=== PATIENT | female | born 1965 | race Caucasian/White ===

== ENCOUNTER 2016-08-20 08:38 | Emergency (ER) | payer OTHER ==
[2016-08-20 08:56] VITALS: BP 123/59
--- NOTE | 2016-08-20 09:08 | UC ---
Complaint Female HPI - HPI Summary HPI Summary: complaint of more frequently and urgency that started last night slight discomfort today with urination noticed urine a very dark color this morning recently started a new pakistani herbal medication for urinary incontinence blood sugar was high yesterday- 400's type 1 DM- wears a pump- today 150's cortisol injections in her right hand- Dr Chaparro denies fever, abdmoinal pain , flank pain - History Of Current Complaint Chief Complaint: UCGU Stated Complaint: BLOOD IN URINE Time Seen by Provider: 08/20/16 09:01 Hx Obtained From: Patient - Allergies/Home Medications Allergies/Adverse Reactions: Allergies Allergy/AdvReac Type Severity Reaction Status Date / Time Erythromycin [From Ilosone] Allergy Stomach Verified 08/20/16 08:45 Cramps Penicillins Allergy Unknown Verified 07/08/14 16:11 Reaction Details Sulfa Antibiotics Allergy Unknown Verified 07/08/14 16:11 Reaction Details Home Medications: Home Medications Insulin Aspart [Novolog] 08/20/16 [History] PMH/Surg Hx/FS Hx/Imm Hx Previously Healthy: No - tendonitis in both hands Endocrine History Of: Reports: Diabetes Cancer History Of: Denies: Breast Cancer - Surgical History Surgical History: Yes Surgery Procedure, Year, and Place: Appendectomy 2003 - Family History Known Family History: Positive: Diabetes - mother Negative: Cardiac Disease, Hypertension - Social History Occupation: Employed Full-time Lives: With Family Alcohol Use: Rare Substance Use Type: None Substance Use Comment - Amount & Last Used: pakistani herbs Smoking Status (MU): Never Smoked Tobacco - Immunization History Most Recent Influenza Vaccination: doesn't usually get Review of Systems Constitutional: Negative Skin: Negative Eyes: Negative ENT: Negative Respiratory: Negative Cardiovascular: Negative Gastrointestinal: Negative Genitourinary: Dysuria, Hematuria, Frequency, Urgency Motor: Negative Neurovascular: Negative Musculoskeletal: Negative Neurological: Negative Psychological: Negative All Other Systems Reviewed And Are Negative: Yes Physical Exam Triage Information Reviewed: Yes Appearance: No Pain Distress, Well-Nourished Vital Signs: Initial Vital Signs Temp 97.5 F 08/20/16 08:48 Pulse 75 08/20/16 08:48 Resp 17 08/20/16 08:48 BP 123/59 08/20/16 08:48 Pulse Ox 100 08/20/16 08:48 Vital Signs Reviewed: Yes Eyes: Positive: Conjunctiva Clear ENT: Positive: Pharynx normal, TMs normal. Negative: Nasal congestion Neck: Positive: No Lymphadenopathy Respiratory: Positive: Lungs clear, Normal breath sounds, No respiratory distress Cardiovascular: Positive: RRR, No Murmur, Pulses Normal Abdomen Description: Positive: Nontender, No Organomegaly, Soft. Negative: CVA Tenderness (R), CVA Tenderness (L), Distended, Guarding Bowel Sounds: Positive: Present Musculoskeletal: Positive: No Edema Neurological: Positive: Alert Psychological: Positive: Normal Response To Family Skin Exam: Normal Complaint Female Dx - Course Course Of Treatment: exam completed. afebrile, denies any muscle aches, flank pain, abdominal. will treat for hemmorrhagis cystitis with PCP followup in 1-2 days. pt cannot take fluruquinolones d/t tendonitis - Differential Dx/Diagnosis Differential Diagnosis/HQI/PQRI: Ureteral Stone, Urinary Tract Infection Provider Diagnoses: hemorrhagic cystitis - Physician Notifications Discussed Patient Care With: Dr Salcido Time Discussed With Above Provider: 09:35 Discharge - Discharge Plan Condition: Stable Disposition: HOME Prescriptions: Nitrofurantoin Monohyd Macro [Macrobid] 100 mg PO BID #10 cap Patient Education Materials: Urinary Tract Infection in Women (ED), Nitrofurantoin Combination (By mouth) Referrals: Carole Mcneill MD [Primary Care Provider] - Additional Instructions: Start antibiotic as directed Stop taking herbal supplements until you are seen by Dr Mcneill. Increase fluids and rest Please make a followup appt with Dr Mcneill in 2 days to have your condition rechecked Take acetaminophen for fever or pain Please review your discharge instructions. If your symptoms do not improve please call your primary care provider or return to urgent care
== END 2016-08-20 09:45 | disposition home or self-care (01) ==
LOC: UCEAST 08:38
DX: N30.80 Other cystitis without hematuria (principal); E11.9 Type 2 diabetes mellitus without complications
CPT/HCPCS: 81002; 87077; 87086; 87186; 99212; G0463

== ENCOUNTER 2016-11-18 09:04 | Emergency (ER) | payer OTHER ==
[2016-11-18 09:40] VITALS: BP 128/67
--- NOTE | 2016-11-18 11:13 | UC ---
Throat Pain/Nasal Huy HPI - HPI Summary HPI Summary: PATIENT PRESENTS TO WITH CC OF THROAT PAIN SINCE YESTERDAY. SHE STATES SHE WAS HERE LAST NIGHT WITH HER SON WHO WAS DX WITH STREP THROAT. SHE FELT A SCRATCH IN HER THROAT LAST EVENING AND WANTED TO GET A RAPID STREP TEST. SHE WAS UNABLE TO CHECK IN AND GET THIS TEST D/T CLOSING TIME (IT WAS AFTER 11PM PER LEARNING AND DEVELOPMENT DIRECTOR). SHE COMES BACK TODAY TO MAKE SURE SHE DOES NOT HAVE STREP. SHE DOES NOT WISH TO BE TREATED WITH ABX UNLESS CONFIRMED STREP +. SHE IS OTHERWISE HEALTHY AND TAKES MEDICATIONS FOR TYPE 1 DIABETES. SHE HAS BEEN TAKING TYLENOL FOR RELIEF. SHE NOTES TO A MILD COUGH AND SOME SINUS DISCOMFORT WITH SOME DRAINAGE, BUT OTHERWISE DENIES RECENT ILLNESS. AFEBRILE ON ARRIVAL. - History of Current Complaint Chief Complaint: UCGeneralIllness Stated Complaint: THROAT PAIN Time Seen by Provider: 11/18/16 09:30 Hx Obtained From: Patient ?: No Onset/Duration: Sudden Onset Severity: Mild Pain Intensity: 2 Pain Scale Used: 0-10 Numeric Associated Signs & Symptoms: Positive: Dysphagia, Nasal Discharge - Epiglottits Risk Factors Epiglottis Risk Factors: Negative - Allergies/Home Medications Allergies/Adverse Reactions: Allergies Allergy/AdvReac Type Severity Reaction Status Date / Time Ciprofloxacin Allergy See Comment Verified 11/18/16 09:32 Erythromycin [From Ilosone] Allergy Stomach Verified 08/20/16 08:45 Cramps Penicillins Allergy Swelling Verified 11/18/16 09:32 Sulfa Antibiotics Allergy Swelling Verified 11/18/16 09:32 PMH/Surg Hx/FS Hx/Imm Hx Previously Healthy: Yes - TYPE 1 DIABETES Endocrine History Of: Reports: Diabetes Cancer History Of: Denies: Breast Cancer - Surgical History Surgical History: Yes Surgery Procedure, Year, and Place: Appendectomy 2003 - Family History Known Family History: Positive: Diabetes - mother Negative: Cardiac Disease, Hypertension - Social History Occupation: Employed Full-time Lives: With Family Alcohol Use: Rare Substance Use Type: None Substance Use Comment - Amount & Last Used: burmese herbs Smoking Status (MU): Never Smoked Tobacco - Immunization History Most Recent Influenza Vaccination: doesn't usually get Review of Systems Constitutional: Negative, Fever ENT: Sore Throat, Nasal Discharge Respiratory: Negative Cardiovascular: Negative Gastrointestinal: Negative Motor: Negative Neurovascular: Negative Neurological: Negative Psychological: Negative All Other Systems Reviewed And Are Negative: Yes Physical Exam Triage Information Reviewed: Yes Appearance: Well-Appearing, No Pain Distress, Well-Nourished Vital Signs: Initial Vital Signs Temp 97.9 F 11/18/16 09:33 Pulse 72 11/18/16 09:33 Resp 16 11/18/16 09:33 BP 128/67 11/18/16 09:33 Pulse Ox 99 11/18/16 09:33 Vital Signs Reviewed: Yes Eye Exam: Normal Eyes: Positive: Conjunctiva Clear ENT: Positive: Pharyngeal erythema, Nasal drainage Dental Exam: Normal Neck exam: Normal Neck: Positive: Supple, No Lymphadenopathy Respiratory Exam: Normal Respiratory: Positive: Chest non-tender, Lungs clear, Normal breath sounds, No respiratory distress Cardiovascular Exam: Normal Cardiovascular: Positive: RRR Musculoskeletal Exam: Normal Musculoskeletal: Positive: Strength Intact Neurological Exam: Normal Neurological: Positive: Alert Psychological: Positive: Normal Response To Family, Age Appropriate Behavior, Decreased Age Appropriate Behavior Throat Pain/Nasal Course/Dx - Course Course Of Treatment: STREP NEGATIVE. WILL SEND FOR CULTURE. PATIENT ENCOURAGED TO TAKE TYLENOL FOR RELIEF. PATIENT IS OK WITH PLAN AND WILL FOLLOW UP NEEDED. - Differential Dx/Diagnosis Differential Diagnosis/HQI/PQRI: Pharyngitis, Tonsillitis, URI, Other - STREP THROAT Provider Diagnoses: PHARYNGITIS Discharge - Discharge Plan Condition: Stable Disposition: HOME Patient Education Materials: Pharyngitis (ED) Referrals: Carole Mcneill MD [Primary Care Provider] - Additional Instructions: How can I manage my symptoms? Use lozenges, ice, soft foods, or popsicles to soothe your throat. Drink juice, milk shakes, or soup if your throat is too sore to eat solid food. Drinking liquids can also help prevent dehydration. Gargle with salt water. Mix teaspoon salt in a 1 cup of warm water and gargle. This may help reduce swelling in your throat. Do not smoke. Nicotine and other chemicals in cigarettes and cigars can cause lung damage and make your symptoms worse. Ask your healthcare provider for information if you currently smoke and need help to quit. E-cigarettes or smokeless tobacco still contain nicotine. Talk to your healthcare provider before you use these products. Tylenol for relief of any discomfort.
== END 2016-11-18 10:24 | disposition home or self-care (01) ==
LOC: UCEAST 09:04
DX: J02.9 Acute pharyngitis, unspecified (principal); E10.9 Type 1 diabetes mellitus without complications; Z88.3 Allergy status to other anti-infective agents; Z88.0 Allergy status to penicillin
CPT/HCPCS: 87070; 87651; 99211; G0463

== ENCOUNTER 2016-12-30 21:38 | Emergency (ER) | payer OTHER ==
[2016-12-30 21:45] VITALS: BP 142/79
[2016-12-30] MEDS ORDERED: DOXYcycline CAP(*) 100 MG PO ONE (21:57)
--- NOTE | 2016-12-30 22:02 | UC ---
UC General HPI - HPI Summary HPI Summary: TICK EMBEDDED IN LEFT THIGH, UNSURE OF HOW LONG IT HAS BEEN THERE. NO FEVER. NO RASH. NO JOINT ACHES. - History of Current Complaint Chief Complaint: [place] Stated Complaint: TICK Time Seen by Provider: 12/30/16 21:50 Hx Obtained From: Patient Onset/Duration: Sudden Onset, Lasting Days, Still Present Onset Severity: Mild Current Severity: Mild Associated Signs & Symptoms: Negative: Confusion, Cough, Chest Pain, Fever, Headache, SOB, Weakness - Allergy/Home Medications Allergies/Adverse Reactions: Allergies Allergy/AdvReac Type Severity Reaction Status Date / Time Ciprofloxacin Allergy See Comment Verified 11/18/16 09:32 Erythromycin [From Ilosone] Allergy Stomach Verified 08/20/16 08:45 Cramps Penicillins Allergy Swelling Verified 11/18/16 09:32 Sulfa Antibiotics Allergy Swelling Verified 11/18/16 09:32 PMH/Surg Hx/FS Hx/Imm Hx Previously Healthy: Yes - Surgical History Surgical History: Yes Surgery Procedure, Year, and Place: Appendectomy 2003 - Family History Known Family History: Positive: Diabetes - mother Negative: Cardiac Disease, Hypertension - Social History Occupation: Employed Full-time Lives: With Family Alcohol Use: Rare Substance Use Type: None Substance Use Comment - Amount & Last Used: portuguese herbs Smoking Status (MU): Never Smoked Tobacco - Immunization History Most Recent Influenza Vaccination: doesn't usually get Review of Systems Constitutional: Negative Skin: Other - TICK EMBEDDED IN LEFT THIGH Eyes: Negative ENT: Negative Respiratory: Negative Cardiovascular: Negative Gastrointestinal: Negative Genitourinary: Negative Motor: Negative Neurovascular: Negative Musculoskeletal: Negative Neurological: Negative Psychological: Negative All Other Systems Reviewed And Are Negative: Yes Physical Exam Triage Information Reviewed: Yes Appearance: Well-Appearing, No Pain Distress, Well-Nourished Vital Signs: Initial Vital Signs Temp 97.3 F 12/30/16 21:40 Pulse 81 12/30/16 21:40 Resp 18 12/30/16 21:40 BP 142/79 12/30/16 21:40 Pulse Ox 99 12/30/16 21:40 Vital Signs Reviewed: Yes Eye Exam: Normal ENT Exam: Normal ENT: Positive: Normal ENT inspection Dental Exam: Normal Neck exam: Normal Neck: Positive: Supple, Nontender, No Lymphadenopathy Respiratory Exam: Normal Respiratory: Positive: Chest non-tender, Lungs clear, Normal breath sounds, No respiratory distress Cardiovascular Exam: Normal Cardiovascular: Positive: RRR, No Murmur, Pulses Normal Abdominal Exam: Normal Musculoskeletal Exam: Normal Musculoskeletal: Positive: Strength Intact, ROM Intact Neurological Exam: Normal Psychological Exam: Normal Skin: Positive: Other - TICK IN LEFT THIGH REMOVED USING TICK TWISTER Course/Dx - Differential Dx - Multi-Symptom Differential Diagnoses: Metabolic Abnormality, Other Provider Diagnoses: TICK REMOVED FROM LEFT THIGH; TICK BITE PROPHYLAXIS Discharge - Discharge Plan Condition: Stable Disposition: HOME Patient Education Materials: Tick Bite (ED) Referrals: Carole Mcneill MD [Primary Care Provider] -
== END 2016-12-30 22:05 | disposition home or self-care (01) ==
LOC: UCEAST 21:38
DX: S70.362A Insect bite (nonvenomous), left thigh, initial encounter (principal); W57.XXXA Bitten or stung by nonvenomous insect and other nonvenomous arthropods, initial encounter; Z88.1 Allergy status to other antibiotic agents; Z88.0 Allergy status to penicillin
CPT/HCPCS: 99212; A9270-GY; G0463

== ENCOUNTER 2017-11-07 17:19 | Emergency (ER) | payer OTHER ==
[2017-11-07 17:38] VITALS: BP 149/64
--- NOTE | 2017-11-07 18:24 | UC ---
Skin Complaint HPI - HPI Summary HPI Summary: PATIENT PRESENTS WITH TICK ATTACHED TO HER LEFT GROIN. [place] (26H[place] AGO) AND IT LIKELY ATTACHED THEN. - History of Current Complaint Chief Complaint: UCSkin Time Seen by Provider: 11/07/17 17:58 Stated Complaint: TICK BITE Hx Obtained From: Patient Onset/Duration: Still Present Skin Exposure Onset/Duration: Hours Ago Timing: Constant Onset Severity: Mild Current Severity: Mild Pain Intensity: 2 Pain Scale Used: 0-10 Numeric Location: Discrete - LEFT GROIN Aggravating Factor(s): Nothing Alleviating Factor(s): Nothing - Allergy/Home Medications Allergies/Adverse Reactions: Allergies Allergy/AdvReac Type Severity Reaction Status Date / Time ciprofloxacin [From Cipro] Allergy Swelling Verified 11/07/17 17:40 erythromycin base Allergy Rash Verified 11/07/17 17:40 Penicillins Allergy Rash Verified 11/07/17 17:40 Sulfa (Sulfonamide Allergy Swelling Verified 11/07/17 17:40 Antibiotics) Review of Systems Constitutional: Negative Skin: Other - TICK ATTACHED Respiratory: Negative Cardiovascular: Negative Gastrointestinal: Negative All Other Systems Reviewed And Are Negative: Yes PMH/Surg Hx/FS Hx/Imm Hx Endocrine History: Diabetes - TYPE I, Hypothyroidism - Surgical History Surgical History: Yes Surgery Procedure, Year, and Place: Appendectomy 2003 - Family History Known Family History: Positive: Hypertension, Diabetes - mother Negative: Cardiac Disease - Social History Alcohol Use: Rare Substance Use Type: None Substance Use Comment - Amount & Last Used: jordanian herbs Smoking Status (MU): Never Smoked Tobacco - Immunization History Most Recent Influenza Vaccination: doesn't usually get Physical Exam Triage Information Reviewed: Yes Appearance: Well-Appearing, No Pain Distress, Well-Nourished Vital Signs: Initial Vital Signs Temp 98.1 F 11/07/17 17:32 Pulse 88 11/07/17 17:32 Resp 18 11/07/17 17:32 BP 149/64 11/07/17 17:32 Pulse Ox 99 11/07/17 17:32 Vital Signs Reviewed: Yes Eyes: Positive: Conjunctiva Clear ENT: Positive: Hearing grossly normal Neck: Positive: Supple Respiratory: Positive: No respiratory distress, No accessory muscle use Cardiovascular: Positive: Pulses Normal Abdomen Description: Positive: Soft Musculoskeletal: Positive: No Edema Neurological: Positive: Alert Psychological: Positive: Age Appropriate Behavior Skin: Positive: Other - DEER TICK ATTACKED LEFT GROIN. NOT ENGORGED Course/Dx - Course Course Of Treatment: TICK REMOVED IN ENTIRETY WITH TICK TWISTER - Diagnoses Provider Diagnoses: 1. TICK BITE. 2. LYME PEP Discharge - Sign-Out/Discharge Documenting (check all that apply): Discharge/Admit/Transfer - Discharge Plan Condition: Stable Disposition: HOME Prescriptions: Doxycycline Monohydrate [Doxycycline Monohydrate] 2 cap PO ONCE #2 cap Patient Education Materials: Tick Bite (ED) Referrals: Carole Mcneill MD [Primary Care Provider] - If Needed Additional Instructions: TICK BITE PROPHYLAXIS You received a Rx for 200mg of doxycycline for prophylaxis against Lyme disease. The Infectious Disease Society of [place] (IDSA) does not generally recommend antimicrobial prophylaxis for prevention of Lyme disease after a recognized tick bite. However, in areas that are highly endemic for Lyme disease, a single dose of doxycycline may be offered to adult patients (200 mg) who are not and to children older than 8 years of age (4 mg/kg up to a maximum dose of 200 mg) when all of the following circumstances exist: CRITERIA FOR RECEIVING PROPHYLACTIC TREATMENT FOR LYME DISEASE 1) TICK ATTACHED FOR AT LEAST 36 HRS 2) TICK IS AN ADULT OR [place] DEER TICK 3) YOU LIVE IN AN AREA WHERE LYME DISEASE IS PREVALENT (i.e., [place], [place], [place], , [place] , [place], [place], [place], [place], [place], [place], [place], [place], [place]) 4) YOU HAVE NO CONTRAINDICATION TO THE MEDICATION (DOXYCYCLINE) 5) PROPHYLAXIS IS BEGUN WITHIN 72 HRS OF TICK REMOVAL SINCE YOU DO NOT MEET ALL THESE CRITERIA THERE IS NO NEED TO GIVE YOU PROPHYLACTIC ANTIBIOTICS. YOUR CHANCES OF DEVELOPING LYME DISEASE ARE EXTREMELY SMALL. GIVEN YOUR CONCERN RX SENT TO PHARMACY DESPITE THIS. BE VIGILANT OF YOUR SYMPTOMS AND DON'T HESITATE TO GET SEEN AGAIN IF YOU DEVELOP UNEXPLAINED FEVER, HEADACHE, JOINT PAIN, BODY ACHES, RASH OR ANY OTHER CONCERNING SYMPTOMS. Antibiotic treatment following a tick bite is not recommended as a means to prevent anaplasmosis, babesiosis, ehrlichiosis, or [place] spotted fever. There is no evidence this practice is effective, and it may simply delay onset of disease. Instead, persons who experience a tick bite should be alert for symptoms suggestive of tickborne illness and consult a physician if fever, rash, or other symptoms of concern develop. - Billing Disposition and Condition Condition: STABLE Disposition: HOME
== END 2017-11-07 18:22 | disposition home or self-care (01) ==
LOC: UCEAST 17:19
DX: S30.861A Insect bite (nonvenomous) of abdominal wall, initial encounter (principal); W57.XXXA Bitten or stung by nonvenomous insect and other nonvenomous arthropods, initial encounter; Y93.H2 Activity, gardening and landscaping; Y92.9 Unspecified place or not applicable; E10.9 Type 1 diabetes mellitus without complications; Z79.4 Long term (current) use of insulin; E03.9 Hypothyroidism, unspecified; Z88.1 Allergy status to other antibiotic agents; Z88.0 Allergy status to penicillin; Z88.2 Allergy status to sulfonamides
CPT/HCPCS: 99211; G0463